=== PATIENT | male | born 1965 | race Caucasian/White ===

== ENCOUNTER 2023-10-24 11:04 | Inpatient (IN) | payer OTHER ==
[2023-10-24 13:02] LABS: BASO % 0.3 % (0-2.0); EOS % 0.5 % (0-4.5); HEMATOCRIT 43.7 % (35.4-49); HEMOGLOBIN 15.5 GM/dL (11.7-16.9); LYMPH % 16.7 % (8-40); MCHC 35.5 g/dl (32.0-35.9); MEAN CELL VOLUME 84.7 fl (80-96); MEAN PLT VOLUME 8.6 fl (7.5-11.1); MONO % 4.4 % (3.8-10.2); NEUT % 78.1 % (42.8-82.8); PLATELET COUNT 209 10^3/uL (134-434); RBC 5.16 M/mm3 (4.00-5.60); RDW 12.6 % (11.9-15.9); WHITE BLOOD COUNT 10.2 K/mm3 (4.0-10.0)
[2023-10-24] MEDS ORDERED: DOXYCYCLINE HYCLATE 100 MG VIAL ONE (13:06)
[2023-10-24] MEDS ORDERED: CEFTRIAXONE 1 GM/50 ML BAG ONE (13:06)
[2023-10-24 13:08] LABS: POTASSIUM 3.6 mmol/L (3.5-5.1)
[2023-10-24 13:10] LABS: ALBUMIN 3.6 g/dl (3.4-5.0); BLOOD UREA NITROGEN 10.1 mg/dL (7-18); CALCIUM 9.6 mg/dL (8.5-10.1)
[2023-10-24 13:14] LABS: CREATININE 0.6 mg/dL (0.55-1.3)
[2023-10-24 13:16] LABS: BILIRUBIN,TOTAL 0.9 mg/dL (0.2-1); TOT PROT 7.9 g/dl (6.4-8.2)
[2023-10-24] MEDS: DOXYCYCLINE INJECTION 100 MG in DEXTROSE 5%-WATER 100 ML IVPB ONE (13:16)
[2023-10-24] MEDS ORDERED: ACETAMINOPHEN INJECTION 100 ML IVPB ONE (13:21)
[2023-10-24] MEDS: ACETAMINOPHEN 1000 MG/100 ML BAG IVPB ONE (13:49)
[2023-10-24] MEDS: SODIUM CHLORIDE 0.9% 500 ML INFUS.BAG IV ONE (13:50)
[2023-10-24] MEDS: INSULIN ASPART SLIDING SCALE (NOVOLOG) 1 VIAL SQ SCH (16:55)
[2023-10-24] MEDS ORDERED: TETANUS AND DIPHTHERIA TOXOID 0.5 ML DISP.SYRIN IM ONE (17:03)
[2023-10-24] MEDS ORDERED: TETANUS, DIPHTHERIA TOX,ADULT 0.5 ML VIAL IM ONE (17:30)
[2023-10-24] MEDS ORDERED: morphine CARPU-JECT 2 MG/1 ML DISP.SYRIN IVPUSH PRN (17:37)
[2023-10-24] MEDS ORDERED: ACETAMINOPHEN 1000 MG/100 ML BAG IVPB PRN (17:37)
[2023-10-24] MEDS: VANCOMYCIN/WATER 1250 MG 1,250 MG/250 ML BAG IVPB SCH (18:00)
[2023-10-24] MEDS: HYDROCHLOROTHIAZIDE 25 MG TABLET (FP) PO SCH (18:03)
[2023-10-24] MEDS: amLODIPine BESYLATE 5 MG TABLET (FP) PO SCH (18:03)
[2023-10-24 18:49] VITALS: BMI 29.9
[2023-10-24] MEDS: ACETAMINOPHEN 1000 MG/100 ML BAG IVPB PRN (21:00)
[2023-10-24] MEDS: clonazePAM 2 MG TABLET PO PRN (21:08)
[2023-10-24] MEDS: AMPICILLIN NA/SULBACTAM NA 3 GM in DEXTROSE 5%-WATER 100 ML IVPB SCH (22:30)
[2023-10-25] MEDS: LEVOTHYROXINE NA 100 MCG TABLET (FP) PO SCH (06:11)
[2023-10-25 09:12] LABS: HEMATOCRIT 44.3 % (35.4-49); HEMOGLOBIN 15.7 GM/dL (11.7-16.9); MCH 30.3 pg (25.7-33.7); MCHC 35.5 g/dl (32.0-35.9); MEAN CELL VOLUME 85.3 fl (80-96); MEAN PLT VOLUME 8.8 fl (7.5-11.1); PLATELET COUNT 247 10^3/uL (134-434); RBC 5.19 M/mm3 (4.00-5.60); RDW 12.2 % (11.9-15.9); WHITE BLOOD COUNT 12.6 K/mm3 (4.0-10.0)
[2023-10-25 09:16] LABS: INR 1.4 (0.83-1.09); PROTHROMBIN TIME (PATIENT) 16.2 SEC (9.7-13.0)
[2023-10-25 09:45] LABS: POTASSIUM 3.3 mmol/L (3.5-5.1)
[2023-10-25 09:51] LABS: ALBUMIN 3.6 g/dl (3.4-5.0); BLOOD UREA NITROGEN 10.6 mg/dL (7-18)
[2023-10-25] MEDS: ENOXAPARIN NA (PORCINE) 40 MG/0.4 ML DISP.SYRIN SQ SCH (09:51)
[2023-10-25 09:54] LABS: CALCIUM 9.5 mg/dL (8.5-10.1); MAGNESIUM 1.8 mg/dL (1.8-2.4)
[2023-10-25 09:56] LABS: CREATININE 0.6 mg/dL (0.55-1.3); PHOSPHOROUS 3.6 mg/dL (2.5-4.9)
[2023-10-25 09:58] LABS: BILIRUBIN,TOTAL 1.3 mg/dL (0.2-1); TOT PROT 8.1 g/dl (6.4-8.2)
[2023-10-25] MEDS: FLUoxetine HCL 10 MG CAPSULE PO SCH (10:11)
[2023-10-25] MEDS: TETANUS AND DIPHTHERIA TOXOID 0.5 ML DISP.SYRIN IM ONE (11:31)
[2023-10-25] MEDS: POTASSIUM CHLORIDE ORAL LIQUID 20 MEQ/15 ML PO ONE (14:12)
[2023-10-25] MEDS: ACETAMINOPHEN 325 MG TABLET (FP) PO PRN (15:08)
[2023-10-25] MEDS: clonazePAM 2 MG TABLET PO PRN (21:23)
[2023-10-26 08:44] LABS: HEMOGLOBIN 14.8 GM/dL (11.7-16.9); MCH 30.7 pg (25.7-33.7); MCHC 36.2 g/dl (32.0-35.9); MEAN CELL VOLUME 84.9 fl (80-96); MEAN PLT VOLUME 8.7 fl (7.5-11.1); PLATELET COUNT 191 10^3/uL (134-434); RBC 4.83 M/mm3 (4.00-5.60); RDW 12.6 % (11.9-15.9)
[2023-10-26 09:07] LABS: ALBUMIN 3.2 g/dl (3.4-5.0); BLOOD UREA NITROGEN 10.6 mg/dL (7-18); CREATININE 0.6 mg/dL (0.55-1.3)
[2023-10-26 09:08] LABS: CALCIUM 8.6 mg/dL (8.5-10.1)
[2023-10-26 09:10] LABS: TOT PROT 7.1 g/dl (6.4-8.2)
[2023-10-26] MEDS: POTASSIUM CHLORIDE TABS 20 MEQ TABLET.ER (FP) PO SCH (17:03)
[2023-10-27 02:42] VITALS: RESP 20
[2023-10-27 11:49] LABS: BASO % 0.3 % (0-2.0); EOS % 1.4 % (0-4.5); HEMATOCRIT 41.8 % (35.4-49); HEMOGLOBIN 14.7 GM/dL (11.7-16.9); LYMPH % 24.5 % (8-40); MCH 30.1 pg (25.7-33.7); MCHC 35.2 g/dl (32.0-35.9); MEAN CELL VOLUME 85.5 fl (80-96); MEAN PLT VOLUME 8.9 fl (7.5-11.1); MONO % 5.5 % (3.8-10.2); NEUT % 68.3 % (42.8-82.8); PLATELET COUNT 223 10^3/uL (134-434); RBC 4.89 M/mm3 (4.00-5.60); RDW 12.1 % (11.9-15.9); WHITE BLOOD COUNT 6.8 K/mm3 (4.0-10.0)
[2023-10-27 11:52] LABS: POTASSIUM 3.7 mmol/L (3.5-5.1)
[2023-10-27 11:54] LABS: CALCIUM 9.4 mg/dL (8.5-10.1)
[2023-10-27 11:55] LABS: ALBUMIN 3.2 g/dl (3.4-5.0); BLOOD UREA NITROGEN 14.7 mg/dL (7-18)
[2023-10-27 11:58] LABS: CREATININE 0.7 mg/dL (0.55-1.3)
[2023-10-27 11:59] LABS: PHOSPHOROUS 3.3 mg/dL (2.5-4.9)
[2023-10-27 12:00] LABS: BILIRUBIN,TOTAL 0.7 mg/dL (0.2-1); TOT PROT 7.4 g/dl (6.4-8.2)
[2023-10-28 05:18] VITALS: TEMP 98.2
[2023-10-28] MEDS ORDERED: methaDONE HCL 10 MG TABLET PO SCH (06:00)
[2023-10-28 10:02] LABS: BASO % 0.6 % (0-2.0); EOS % 2.1 % (0-4.5); HEMATOCRIT 40.9 % (35.4-49); HEMOGLOBIN 14.3 GM/dL (11.7-16.9); LYMPH % 35.1 % (8-40); MCHC 34.9 g/dl (32.0-35.9); MEAN CELL VOLUME 85.9 fl (80-96); MEAN PLT VOLUME 8.4 fl (7.5-11.1); MONO % 5.9 % (3.8-10.2); NEUT % 56.3 % (42.8-82.8); PLATELET COUNT 233 10^3/uL (134-434); RBC 4.77 M/mm3 (4.00-5.60); RDW 12.3 % (11.9-15.9); WHITE BLOOD COUNT 6.5 K/mm3 (4.0-10.0)
[2023-10-28 10:21] LABS: POTASSIUM 4.3 mmol/L (3.5-5.1)
[2023-10-28 10:28] LABS: ALBUMIN 3.2 g/dl (3.4-5.0); BLOOD UREA NITROGEN 11.8 mg/dL (7-18); MAGNESIUM 1.9 mg/dL (1.8-2.4)
[2023-10-28 10:31] LABS: CREATININE 0.6 mg/dL (0.55-1.3); PHOSPHOROUS 3.7 mg/dL (2.5-4.9)
[2023-10-28 10:32] LABS: BILIRUBIN,TOTAL 0.6 mg/dL (0.2-1); TOT PROT 7.2 g/dl (6.4-8.2)
[2023-10-28 11:39] LABS: ERYTHROCYTE SEDIMENTATION RATE 32 mm/hr (0-20)
[2023-10-28 14:30] VITALS: BP 153/57; PULSE 69
== END 2023-10-28 15:00 | disposition home or self-care (01) | DRG 383 ==
LOC: JER 11:04 → JERBED 13:17 → J6S 15:12
PROVIDERS: ADMIT Internal Medicine; ATTEND Internal Medicine
DX: L03.114 Cellulitis of left upper limb (principal); B95.62 Methicillin resistant Staphylococcus aureus infection as the cause of diseases classified elsewhere; J44.9 Chronic obstructive pulmonary disease, unspecified; E03.9 Hypothyroidism, unspecified; E11.9 Type 2 diabetes mellitus without complications; L02.512 Cutaneous abscess of left hand; F11.20 Opioid dependence, uncomplicated; I11.0 Hypertensive heart disease with heart failure; I50.9 Heart failure, unspecified; W55.03XA Scratched by cat, initial encounter; Y92.098 Other place in other non-institutional residence as the place of occurrence of the external cause; Y99.9 Unspecified external cause status
CPT/HCPCS: 36415; 73110-TC-LT-FY; 73221-TC-LT; 76882-TC-RT-FY; 80053; 82962; 83036; 83735; 84100; 85025; 85027; 85610; 85651; 86140; 87040; 87070; 87186; 87205; 93005; 93010; 99285-25; G0480; J0131

== ENCOUNTER 2025-03-23 15:05 | Inpatient (IN) | payer OTHER ==
[2025-03-23 15:12] VITALS: BMI 30.7
[2025-03-23 18:57] LABS: ABSOLUTE IMMATURE GRANULOCYTES 0.02 x10^3/uL (0.0-0.031); BASOPHILS # 0.03 x10^3/uL (0.01-0.08); EOSINOPHIL % 1.1 % (0.8-7.0); EOSINOPHILS # 0.08 x10^3/uL (0.04-0.54); MCHC 35.5 g/dl (32.3-36.5); MEAN CELL VOLUME 82.1 fl (79.0-92.2); MEAN PLT VOLUME 10.4 fl (9.4-12.4); MONOCYTE # 0.37 x10^3/uL (0.30-0.82); MONOCYTE % 5.1 % (5.3-12.2); RDW 11.4 % (12.2-16.1)
[2025-03-23 19:04] LABS: INR 1.33 (0.83-1.09); PROTHROMBIN TIME (PATIENT) 14.6 SEC (9.7-13.0)
[2025-03-23 19:06] LABS: ACTIVATED PTT 30.5 SECONDS (25.2-36.5)
[2025-03-23] MEDS ORDERED: ACETAMINOPHEN INJECTION 100 ML ONE (19:08)
[2025-03-23] MEDS: ACETAMINOPHEN 1000 MG/100 ML BAG IVPB ONE (19:19)
[2025-03-23] MEDS ORDERED: PIPERACILLIN/TAZOB 4.5 GM 4.5 GM/100 ML BAG IVPB ONE (19:46)
[2025-03-23] MEDS: PIPERACILLIN/TAZOB 4.5 GM 4.5 GM in DEXTROSE 5%-WATER 100 ML IVPB ONE (19:48)
[2025-03-23] MEDS ORDERED: VANCOMYCIN 1 GRAM (PRE-DOCKED) 1,000 MG/250 ML BAG IVPB ONE (19:49)
[2025-03-23] MEDS: VANCOMYCIN 1,000 MG in DEXTROSE 5%-WATER - 250 ML IVPB ONE (19:51)
[2025-03-23 20:08] LABS: CO2 35.0 mmol/L (21-32)
[2025-03-23 20:09] LABS: GLUCOSE,RANDOM 220.0 mg/dL (74-106)
[2025-03-23 20:11] LABS: SGPT/ALT 32.0 U/L (13-61)
[2025-03-23 20:12] LABS: CREATININE 0.6 mg/dL (0.55-1.3); SGOT/AST 27.0 U/L (15-37)
[2025-03-23 20:13] LABS: TOT PROT 7.4 g/dl (6.4-8.2)
[2025-03-23 20:14] LABS: ALK PHOS 74.0 U/L (45-117)
[2025-03-23] MEDS: LACTATED RINGERS SOLUTION 1000 ML INFUS.BAG IV ONE (20:17)
[2025-03-23] MEDS: POTASSIUM CHLORIDE TABS 20 MEQ TABLET.ER (FP) PO ONE (20:18)
[2025-03-23] MEDS ORDERED: POTASSIUM CHLORIDE TABS 20 MEQ TABLET.ER (FP) PO ONE (20:19)
[2025-03-23 21:44] LABS: HCV DIAGNOSTIC IN-HOUSE W/RFLX NON-REACTIVE (NONREACTIVE)
[2025-03-23 22:26] LABS: HIV INTERPRETATION NEGATIVE (NEGATIVE)
[2025-03-24] MEDS: INSULIN GLARGINE (LANTUS) 100 UNITS/ML UNITS SQ SCH (02:04)
[2025-03-24] MEDS: PIPERACILLIN/TAZOB 3.375 GM 3.375 GM in DEXTROSE 5%-WATER - 50 ML IVPB SCH (02:06)
[2025-03-24] MEDS: LEVOTHYROXINE NA 200 MCG TABLET PO SCH (06:26)
[2025-03-24] MEDS: INSULIN ASPART SLIDING SCALE (NOVOLOG) 1 VIAL SQ SCH (06:27)
[2025-03-24 08:23] LABS: URINE APPEARANCE CLEAR; URINE BILIRUBIN NEGATIVE (NEGATIVE); URINE COLOR YELLOW; URINE GLUCOSE (UA) TRACE (NEGATIVE); URINE KETONE NEGATIVE (NEGATIVE); URINE LEUK ESTERASE NEGATIVE (NEGATIVE); URINE NITRITE NEGATIVE (NEGATIVE); URINE PROTEIN NEGATIVE (NEGATIVE); URINE UROBILINOGEN 1.0 mg/dL (0.2-1.0)
[2025-03-24 08:47] LABS: ABSOLUTE IMMATURE GRANULOCYTES 0.02 x10^3/uL (0.0-0.031); BASOPHILS # 0.03 x10^3/uL (0.01-0.08); EOSINOPHIL % 2.5 % (0.8-7.0); EOSINOPHILS # 0.14 x10^3/uL (0.04-0.54); MCHC 34.7 g/dl (32.3-36.5); MEAN CELL VOLUME 84.8 fl (79.0-92.2); MEAN PLT VOLUME 10.8 fl (9.4-12.4); MONOCYTE # 0.35 x10^3/uL (0.30-0.82); MONOCYTE % 6.3 % (5.3-12.2); RDW 11.7 % (12.2-16.1)
[2025-03-24 09:24] LABS: CO2 36.0 mmol/L (21-32)
[2025-03-24 09:25] LABS: GLUCOSE,RANDOM 200.0 mg/dL (74-106)
[2025-03-24] MEDS: HYDROCHLOROTHIAZIDE 25 MG TABLET (FP) PO SCH (09:26)
[2025-03-24] MEDS: amLODIPine BESYLATE 5 MG TABLET (FP) PO SCH (09:26)
[2025-03-24 09:27] LABS: SGOT/AST 29.0 U/L (15-37); SGPT/ALT 31.0 U/L (13-61)
[2025-03-24] MEDS: ENOXAPARIN NA (PORCINE) 40 MG/0.4 ML DISP.SYRIN SQ SCH (09:27)
[2025-03-24 09:28] LABS: CREATININE 0.7 mg/dL (0.55-1.3)
[2025-03-24 09:28] LABS: COCAINE, UR NEGATIVE (NEGATIVE); URINE BARBITURATES NEGATIVE (NEGATIVE)
[2025-03-24 09:29] LABS: OPIATES, URI NEGATIVE (NEGATIVE); PHENCYCLIDINE,URINE NEGATIVE (NEGATIVE)
[2025-03-24 09:29] LABS: TOT PROT 6.9 g/dl (6.4-8.2)
[2025-03-24 09:30] LABS: ALK PHOS 68.0 U/L (45-117)
[2025-03-24 09:30] LABS: METHADONE, UR POSITIVE (NEGATIVE); URINE AMPHETAMINES NEGATIVE (NEGATIVE); URINE BENZODIAZEPINES POSITIVE (NEGATIVE)
[2025-03-24] MEDS: FLUOXETINE HCL PO SCH (09:36)
[2025-03-24] MEDS ORDERED: LEVOTHYROXINE NA 200 MCG TABLET PO SCH (10:00)
[2025-03-24] MEDS ORDERED: FLUoxetine HCL 10 MG TABLET PO SCH (10:00)
[2025-03-24] MEDS: POTASSIUM CHLORIDE TABS 20 MEQ TABLET.ER (FP) PO SCH (11:13)
[2025-03-24] MEDS: CEFTRIAXONE 2 GM in DEXTROSE 5%-WATER 100 ML IVPB SCH (17:26)
[2025-03-24] MEDS ORDERED: VANCOMYCIN PREMIX 1.5 GM 1,500 MG/300 ML BAG IVPB SCH (20:00)
[2025-03-24] MEDS ORDERED: VANCOMYCIN HCL 1,500 MG in DEXTROSE 5%-WATER - 500 ML IVPB SCH (20:00)
[2025-03-24] MEDS: COLLAGENASE CLOSTRIDIUM HIST. 30 GRAMS TUBE TP SCH (22:29)
[2025-03-25] MEDS: PIPERACILLIN/TAZOB 3.375 GM 3.375 GM in DEXTROSE 5%-WATER - 50 ML IVPB SCH (01:50)
[2025-03-25 08:28] LABS: ABSOLUTE IMMATURE GRANULOCYTES 0.02 x10^3/uL (0.0-0.031); BASOPHILS # 0.02 x10^3/uL (0.01-0.08); EOSINOPHIL % 2.8 % (0.8-7.0); EOSINOPHILS # 0.16 x10^3/uL (0.04-0.54); MCHC 33.9 g/dl (32.3-36.5); MEAN CELL VOLUME 85.8 fl (79.0-92.2); MEAN PLT VOLUME 10.4 fl (9.4-12.4); MONOCYTE # 0.40 x10^3/uL (0.30-0.82); MONOCYTE % 6.9 % (5.3-12.2); RDW 11.7 % (12.2-16.1)
[2025-03-25 09:21] LABS: CO2 36.0 mmol/L (21-32); CREATININE 0.6 mg/dL (0.55-1.3); GLUCOSE,RANDOM 196.0 mg/dL (74-106); SGOT/AST 28.0 U/L (15-37); SGPT/ALT 29.0 U/L (13-61)
[2025-03-25 09:22] LABS: TOT PROT 6.9 g/dl (6.4-8.2)
[2025-03-25 09:24] LABS: ALK PHOS 65.0 U/L (45-117)
[2025-03-25] MEDS ORDERED: POTASSIUM CHLORIDE TABS 20 MEQ TABLET.ER (FP) PO SCH ×2 (10:00)
[2025-03-25] MEDS: MAGNESIUM OXIDE 400 MG TABLET (FP) PO ONE (10:44)
[2025-03-25] MEDS ORDERED: INSULIN ASPART SLIDING SCALE (NOVOLOG) 1 VIAL SQ ONE (11:35)
[2025-03-26 10:22] LABS: ABSOLUTE IMMATURE GRANULOCYTES 0.02 x10^3/uL (0.0-0.031); BASOPHILS # 0.02 x10^3/uL (0.01-0.08); EOSINOPHIL % 1.8 % (0.8-7.0); EOSINOPHILS # 0.10 x10^3/uL (0.04-0.54); MCHC 34.3 g/dl (32.3-36.5); MEAN CELL VOLUME 84.4 fl (79.0-92.2); MEAN PLT VOLUME 10.8 fl (9.4-12.4); MONOCYTE # 0.32 x10^3/uL (0.30-0.82); MONOCYTE % 5.7 % (5.3-12.2); RDW 11.6 % (12.2-16.1)
[2025-03-26 11:15] LABS: CO2 34.0 mmol/L (21-32); GLUCOSE,RANDOM 235.0 mg/dL (74-106)
[2025-03-26 11:18] LABS: SGOT/AST 35.0 U/L (15-37); SGPT/ALT 35.0 U/L (13-61)
[2025-03-26 11:19] LABS: CREATININE 0.7 mg/dL (0.55-1.3)
[2025-03-26 11:20] LABS: TOT PROT 7.2 g/dl (6.4-8.2)
[2025-03-26 11:21] LABS: ALK PHOS 66.0 U/L (45-117)
[2025-03-26] MEDS: POTASSIUM CHLORIDE TABS 20 MEQ TABLET.ER (FP) PO ONE (17:10)
[2025-03-27 08:44] LABS: ABSOLUTE IMMATURE GRANULOCYTES 0.02 x10^3/uL (0.0-0.031); BASOPHILS # 0.03 x10^3/uL (0.01-0.08); EOSINOPHIL % 1.7 % (0.8-7.0); EOSINOPHILS # 0.10 x10^3/uL (0.04-0.54); MCHC 34.5 g/dl (32.3-36.5); MEAN CELL VOLUME 84.1 fl (79.0-92.2); MEAN PLT VOLUME 10.5 fl (9.4-12.4); MONOCYTE # 0.40 x10^3/uL (0.30-0.82); MONOCYTE % 6.9 % (5.3-12.2); RDW 11.5 % (12.2-16.1)
[2025-03-27 09:19] LABS: CO2 34.0 mmol/L (21-32)
[2025-03-27 09:20] LABS: GLUCOSE,RANDOM 157.0 mg/dL (74-106)
[2025-03-27 09:22] LABS: CREATININE 0.6 mg/dL (0.55-1.3); SGOT/AST 39.0 U/L (15-37); SGPT/ALT 36.0 U/L (13-61)
[2025-03-27 09:23] LABS: TOT PROT 6.9 g/dl (6.4-8.2)
[2025-03-27 09:24] LABS: ALK PHOS 62.0 U/L (45-117)
[2025-03-27] MEDS ORDERED: INSULIN ASPART SLIDING SCALE (NOVOLOG) 1 VIAL SQ ONE ×2 (11:06→16:50)
[2025-03-27] MEDS: ACETAMINOPHEN 325 MG TABLET (FP) PO PRN (11:14)
[2025-03-28] MEDS: INSULIN GLARGINE (LANTUS) 100 UNITS/ML UNITS SQ SCH (21:42)
[2025-03-29 10:03] LABS: GLUCOSE,RANDOM 144.0 mg/dL (74-106)
[2025-03-29 10:07] LABS: CO2 33.0 mmol/L (21-32)
[2025-03-29 10:10] LABS: CREATININE 0.6 mg/dL (0.55-1.3); SGOT/AST 45.0 U/L (15-37); SGPT/ALT 45.0 U/L (13-61)
[2025-03-29 10:13] LABS: ALK PHOS 63.0 U/L (45-117); TOT PROT 7.5 g/dl (6.4-8.2)
[2025-03-29] MEDS: POTASSIUM CHLORIDE ORAL LIQUID 20 MEQ/15 ML PO ONE (11:35)
[2025-03-29] MEDS ORDERED: LIDOCAINE HCL 1%, 10 MG/ML (20ML VIAL) ONE (11:55)
[2025-03-30 08:35] LABS: ABSOLUTE IMMATURE GRANULOCYTES 0.02 x10^3/uL (0.0-0.031); BASOPHILS # 0.02 x10^3/uL (0.01-0.08); EOSINOPHIL % 1.8 % (0.8-7.0); EOSINOPHILS # 0.10 x10^3/uL (0.04-0.54); MCHC 34.7 g/dl (32.3-36.5); MEAN CELL VOLUME 83.5 fl (79.0-92.2); MEAN PLT VOLUME 10.9 fl (9.4-12.4); MONOCYTE # 0.44 x10^3/uL (0.30-0.82); MONOCYTE % 7.8 % (5.3-12.2); RDW 11.6 % (12.2-16.1)
[2025-03-30 08:58] LABS: CO2 34.0 mmol/L (21-32); GLUCOSE,RANDOM 157.0 mg/dL (74-106)
[2025-03-30 09:02] LABS: CREATININE 0.5 mg/dL (0.55-1.3); SGOT/AST 38.0 U/L (15-37); SGPT/ALT 43.0 U/L (13-61)
[2025-03-30 09:03] LABS: ALK PHOS 59.0 U/L (45-117); TOT PROT 7.2 g/dl (6.4-8.2)
[2025-03-30] MEDS: POTASSIUM CHLORIDE ORAL LIQUID 20 MEQ/15 ML PO ONE (10:55)
[2025-03-30] MEDS: CEFTRIAXONE 1 GM in DEXTROSE 5%-WATER - 50 ML IVPB SCH (10:57)
[2025-03-30] MEDS: POTASSIUM CHLORIDE TABS 20 MEQ TABLET.ER (FP) PO ONE (12:16)
[2025-03-30] MEDS: CEFTRIAXONE 1 GM in DEXTROSE 5%-WATER - 50 ML IVPB ONE (16:35)
[2025-03-30] MEDS: ENOXAPARIN NA (PORCINE) 40 MG/0.4 ML DISP.SYRIN SQ SCH (21:46)
[2025-03-31 07:47] LABS: ABSOLUTE IMMATURE GRANULOCYTES 0.02 x10^3/uL (0.0-0.031); BASOPHILS # 0.02 x10^3/uL (0.01-0.08); EOSINOPHIL % 2.4 % (0.8-7.0); EOSINOPHILS # 0.12 x10^3/uL (0.04-0.54); MCHC 34.9 g/dl (32.3-36.5); MEAN CELL VOLUME 84.1 fl (79.0-92.2); MEAN PLT VOLUME 10.6 fl (9.4-12.4); MONOCYTE # 0.40 x10^3/uL (0.30-0.82); MONOCYTE % 8.1 % (5.3-12.2); RDW 11.6 % (12.2-16.1)
[2025-03-31 08:25] LABS: CO2 34.0 mmol/L (21-32); GLUCOSE,RANDOM 179.0 mg/dL (74-106)
[2025-03-31 08:27] LABS: CREATININE 0.6 mg/dL (0.55-1.3); SGPT/ALT 40.0 U/L (13-61)
[2025-03-31 08:29] LABS: SGOT/AST 32.0 U/L (15-37); TOT PROT 7.1 g/dl (6.4-8.2)
[2025-03-31 08:31] LABS: ALK PHOS 59.0 U/L (45-117)
[2025-03-31] MEDS: CEFTRIAXONE 2 GM in DEXTROSE 5%-WATER 100 ML IVPB SCH (09:48)
[2025-03-31] MEDS ORDERED: INSULIN ASPART SLIDING SCALE (NOVOLOG) 1 VIAL SQ SCH (14:18)
[2025-03-31 15:51] VITALS: BP 132/82; PULSE 70; RESP 18; TEMP 97.9
== END 2025-03-31 15:56 | disposition home or self-care (01) | DRG 344 ==
LOC: JER 15:05 → JERBED 20:16 → J8W 03-24 01:00
PROVIDERS: ADMIT Internal Medicine; ATTEND Nurse Practitioner Family
PROC: 0JBP0ZZ Excision of Left Lower Leg Subcutaneous Tissue and Fascia, Open Approach (ICD-10-PCS; principal; 2025-03-30)
PROC: 0QBR0ZX Excision of Left Toe Phalanx, Open Approach, Diagnostic (ICD-10-PCS; 2025-03-30)
DX: E11.69 Type 2 diabetes mellitus with other specified complication (principal); M86.172 Other acute osteomyelitis, left ankle and foot; E11.40 Type 2 diabetes mellitus with diabetic neuropathy, unspecified; E11.621 Type 2 diabetes mellitus with foot ulcer; F11.20 Opioid dependence, uncomplicated; E11.649 Type 2 diabetes mellitus with hypoglycemia without coma; I10 Essential (primary) hypertension; L03.032 Cellulitis of left toe; L97.528 Non-pressure chronic ulcer of other part of left foot with other specified severity
CPT/HCPCS: 36415; 73630-TC-LT; 73718-TC-LT; 80048; 80053; 80307; 81003; 82962; 83036; 83735; 84100; 84484; 85025; 85610; 85730; 86140; 86803; 86850; 86900; 86901; 87040; 87070; 87075; 87081; 87205; 87389; 88307-TC; 88311-TC; 93005; 93010; 93922; 93926-TC; 99285-25